=== PATIENT | female | born 1940 | race Caucasian/White ===

== ENCOUNTER 2018-05-25 04:38 | Outpatient (CLI) | payer MEDICARE, OTHER | END 2018-05-25 23:59 | disposition short-term general hospital (02) | LOC: EMS 04:38 | PROVIDERS: ATTEND Surgery | DX: R25.2 Cramp and spasm (principal) | CPT/HCPCS: A0425; A0429 ==

== ENCOUNTER 2021-11-06 14:09 | Outpatient (CLI) | payer MEDICARE, OTHER ==
[2021-11-06 14:28] LABS: GLUCOSE, URINE (UA) NEGATIVE (NEGATIVE); KETONES,URINE (UA) NEGATIVE (NEGATIVE); LEUKOCYTE ESTERASE, URINE SMALL (NEGATIVE); NITRITE,URINE NEGATIVE (NEGATIVE); OCCULT BLOOD,URINE NEGATIVE (NEGATIVE); PROTEIN,URINE NEGATIVE (NEGATIVE); UROBILINOGEN,URINE 0.2 (NORMAL) E.U./dL (NORMAL)
[2021-11-06 14:51] LABS: BILIRUBIN,URINE MODERATE (NEGATIVE); CLARITY,URINE CLEAR (CLEAR); ICTOTEST,URINE POSITIVE
[2021-11-06 14:52] LABS: BACTERIA,URINE Few /HPF (None Seen); RBC,URINE 0-5 /HPF (0-5); SQUAMOUS EPITHELIAL CELL,UR MOD Squamous (<= Few); WBC,URINE 0-3 /HPF (0-5)
== END 2021-11-06 14:10 | disposition home or self-care (01) ==
LOC: LAB 14:09
PROVIDERS: ATTEND Surgery
DX: R30.0 Dysuria (principal)
CPT/HCPCS: 81001; 87086

== ENCOUNTER 2021-11-20 08:19 | Day surgery (SDC) | payer MEDICARE, OTHER ==
[~2021-11-20 08:19] MED LIST: BUPIVACAINE 0.5% PF 30 ML VIAL ONE; CEFAZOLIN SODIUM IN 0.9 % NACL 2 GM/50 ML BAG IV ONE; LIDOCAINE 2%-EPI 1:100000 20 ML MDV ONE; ceFAZolin 1 GM VIAL ONE
[2021-11-20] MEDS ORDERED: LACTATED RINGERS 1,000 ML IV ONE ×2 (08:41→11:38)
--- NOTE | 2021-11-20 08:47 | ANESTHESIA ---
Pre-Anesthesia VS, & Labs - Diagnosis incarcerated umbilical hernia - Procedure umbilical hernia repair Vital Signs: Temp Pulse Resp BP Pulse Ox 36.9 C 88 16 169/90 H 100 11/20/21 08:20 11/20/21 08:20 11/20/21 08:20 11/20/21 08:20 11/20/21 08:20 Height: 5 ft 4 in Weight (kg): 74 kg Body Mass Index: 28.0 BMI Classification: Overweight - NPO >8 hours - Is Patient ?: No - Lab Results Lab results reviewed: Yes Home Medications and Allergies Home Medications: Ambulatory Orders Acetaminophen [Pain Relief Extra Strength] 500 mg PO PRN PRN 11/10/21 Albuterol Sulfate [Proair Hfa Inhaler] 1 - 2 puffs INH Q4H PRN 11/10/21 Aspirin [Aspirin EC] 81 mg PO QPM 11/10/21 Brimonidine/Dorzolamide/Pf [Brimonidine 0.15%-Dorzolam 2%] 1 drops EACHEYE BID 11/10/21 Calcium Carbonate [Calcium] 600 mg PO BID 11/10/21 Calcium Carbonate [Tums (Calcium Carbonate 500mg)] 500 mg PO Q4-6H PRN 11/10/21 Cholecalciferol (Vitamin D3) [Vitamin D3] 50 mcg PO DAILY 11/10/21 Docusate Sodium [Dulcolax Stool Softener] 300 mg PO QPM 11/10/21 Escitalopram [Lexapro] 10 mg PO DAILY 11/10/21 Etodolac 400 mg PO QPM 11/10/21 Gabapentin [Neurontin] 300 mg PO BID 11/10/21 Lactobacillus Combination No.4 [Probiotic] 1 each PO BID 11/10/21 Latanoprost/Pf [Latanoprost 0.005% Eye Drop] 1 drops EACHEYE QPM 11/10/21 Loratadine/Pseudoephedrine [Allerclear D-24Hr ER Tablet] 1 each PO DAILY 11/10/21 Melatonin 3 mg PO QPM 11/10/21 Omeprazole 20 mg PO PRN PRN 11/10/21 Timolol/Brimonidin/Dorzolam/Pf [Timol 0.5%-Brim 0.15%-Dorzo 2%] 1 drops EACHEYE DAILY 11/10/21 methocarbamoL [Methocarbamol] 500 mg PO QPM 11/10/21 Acetaminophen [Pain Relief Extra Strength] 500 mg PO PRN PRN 11/10/21 Albuterol Sulfate [Proair Hfa Inhaler] 1 - 2 puffs INH Q4H PRN 11/10/21 Aspirin [Aspirin EC] 81 mg PO QPM 11/10/21 Brimonidine/Dorzolamide/Pf [Brimonidine 0.15%-Dorzolam 2%] 1 drops EACHEYE BID 11/10/21 Calcium Carbonate [Calcium] 600 mg PO BID 11/10/21 Calcium Carbonate [Tums (Calcium Carbonate 500mg)] 500 mg PO Q4-6H PRN 11/10/21 Cholecalciferol (Vitamin D3) [Vitamin D3] 50 mcg PO DAILY 11/10/21 Docusate Sodium [Dulcolax Stool Softener] 300 mg PO QPM 11/10/21 Escitalopram [Lexapro] 10 mg PO DAILY 11/10/21 Etodolac 400 mg PO QPM 11/10/21 Gabapentin [Neurontin] 300 mg PO BID 11/10/21 Lactobacillus Combination No.4 [Probiotic] 1 each PO BID 11/10/21 Latanoprost/Pf [Latanoprost 0.005% Eye Drop] 1 drops EACHEYE QPM 11/10/21 Loratadine/Pseudoephedrine [Allerclear D-24Hr ER Tablet] 1 each PO DAILY 11/10/21 Melatonin 3 mg PO QPM 11/10/21 Omeprazole 20 mg PO PRN PRN 11/10/21 Timolol/Brimonidin/Dorzolam/Pf [Timol 0.5%-Brim 0.15%-Dorzo 2%] 1 drops EACHEYE DAILY 11/10/21 methocarbamoL [Methocarbamol] 500 mg PO QPM 11/10/21 Allergies/Adverse Reactions: Allergies Allergy/AdvReac Type Severity Reaction Status Date / Time Penicillins Allergy Hives Verified 11/10/21 12:01 Sulfa (Sulfonamide Allergy Unknown Verified 11/10/21 12:01 Antibiotics) adhesive tape AdvReac skin Verified 11/10/21 12:01 redness/ irritation Anes History & Medical History - Anesthetic History Anesthesia Complications: reports: No previous complications Family history of Anesthesia Complications: Denies Family history of Malignant Hyperthermia: Denies - Medical History Cardiovascular: reports: None Pulmonary: reports: Asthma Gastrointestinal: reports: None Urinary: reports: Other Musculoskeletal: reports: Osteoarthritis Endocrine/Autoimmune: reports: None Skin: reports: None - Surgical History General: reports: Colonoscopy, Other Eyes Ears Nose Throat (EENT): reports: Cataracts, Tonsil/Adenoidectomy, Other Gynecologic: reports: Hysterectomy Orthopedic: reports: Spine surgery Exam General: Alert, Oriented x3, Cooperative Plan Anesthesia Type: General Consent for Procedure(s) Verified and Reviewed: Yes Code Status: Attempt Resuscitation
[2021-11-20] MEDS ORDERED: fentaNYL 100 MCG/2 ML VIAL ONE (10:03)
[2021-11-20] MEDS ORDERED: ATROPINE ABBOJECT 1 MG/10 ML SYRINGE IVP PRN (10:18)
[2021-11-20] MEDS ORDERED: NALOXONE 0.4 MG/ML VIAL IVP PRN (10:18)
[2021-11-20] MEDS ORDERED: ePHEDrine 50 MG/ML VIAL IVP PRN (10:18)
[2021-11-20] MEDS ORDERED: fentaNYL 100 MCG/2 ML VIAL IVP PRN (10:18)
[2021-11-20] MEDS ORDERED: MORPHINE 2 MG/ML CARPUJECT IVP PRN (10:18)
[2021-11-20] MEDS ORDERED: HYDROmorphone 0.5 MG/0.5 ML SYRINGE IVP PRN (10:18)
--- NOTE | 2021-11-20 10:18 | ANESTHESIA ---
Pre-Anesthesia VS, & Labs - Diagnosis umbilical hernia - Procedure umbilical hernia repair Vital Signs: Temp Pulse Resp BP Pulse Ox 36.9 C 88 16 169/90 H 100 11/20/21 08:20 11/20/21 08:20 11/20/21 08:20 11/20/21 08:20 11/20/21 08:20 Height: 5 ft 4 in Weight (kg): 74 kg Body Mass Index: 28.0 BMI Classification: Overweight - NPO >8 hours - Is Patient ?: No Home Medications and Allergies Home Medications: Ambulatory Orders Acetaminophen [Pain Relief Extra Strength] 500 mg PO PRN PRN 11/10/21 Albuterol Sulfate [Proair Hfa Inhaler] 1 - 2 puffs INH Q4H PRN 11/10/21 Aspirin [Aspirin EC] 81 mg PO QPM 11/10/21 Brimonidine/Dorzolamide/Pf [Brimonidine 0.15%-Dorzolam 2%] 1 drops EACHEYE BID 11/10/21 Calcium Carbonate [Calcium] 600 mg PO BID 11/10/21 Calcium Carbonate [Tums (Calcium Carbonate 500mg)] 500 mg PO Q4-6H PRN 11/10/21 Cholecalciferol (Vitamin D3) [Vitamin D3] 50 mcg PO DAILY 11/10/21 Docusate Sodium [Dulcolax Stool Softener] 300 mg PO QPM 11/10/21 Escitalopram [Lexapro] 10 mg PO DAILY 11/10/21 Etodolac 400 mg PO QPM 11/10/21 Gabapentin [Neurontin] 300 mg PO BID 11/10/21 Lactobacillus Combination No.4 [Probiotic] 1 each PO BID 11/10/21 Latanoprost/Pf [Latanoprost 0.005% Eye Drop] 1 drops EACHEYE QPM 11/10/21 Loratadine/Pseudoephedrine [Allerclear D-24Hr ER Tablet] 1 each PO DAILY 11/10/21 Melatonin 3 mg PO QPM 11/10/21 Omeprazole 20 mg PO PRN PRN 11/10/21 Timolol/Brimonidin/Dorzolam/Pf [Timol 0.5%-Brim 0.15%-Dorzo 2%] 1 drops EACHEYE DAILY 11/10/21 methocarbamoL [Methocarbamol] 500 mg PO QPM 11/10/21 Acetaminophen [Pain Relief Extra Strength] 500 mg PO PRN PRN 11/10/21 Albuterol Sulfate [Proair Hfa Inhaler] 1 - 2 puffs INH Q4H PRN 11/10/21 Aspirin [Aspirin EC] 81 mg PO QPM 11/10/21 Brimonidine/Dorzolamide/Pf [Brimonidine 0.15%-Dorzolam 2%] 1 drops EACHEYE BID 11/10/21 Calcium Carbonate [Calcium] 600 mg PO BID 11/10/21 Calcium Carbonate [Tums (Calcium Carbonate 500mg)] 500 mg PO Q4-6H PRN 11/10/21 Cholecalciferol (Vitamin D3) [Vitamin D3] 50 mcg PO DAILY 11/10/21 Docusate Sodium [Dulcolax Stool Softener] 300 mg PO QPM 11/10/21 Escitalopram [Lexapro] 10 mg PO DAILY 11/10/21 Etodolac 400 mg PO QPM 11/10/21 Gabapentin [Neurontin] 300 mg PO BID 11/10/21 Lactobacillus Combination No.4 [Probiotic] 1 each PO BID 11/10/21 Latanoprost/Pf [Latanoprost 0.005% Eye Drop] 1 drops EACHEYE QPM 11/10/21 Loratadine/Pseudoephedrine [Allerclear D-24Hr ER Tablet] 1 each PO DAILY 11/10/21 Melatonin 3 mg PO QPM 11/10/21 Omeprazole 20 mg PO PRN PRN 11/10/21 Timolol/Brimonidin/Dorzolam/Pf [Timol 0.5%-Brim 0.15%-Dorzo 2%] 1 drops EACHEYE DAILY 11/10/21 methocarbamoL [Methocarbamol] 500 mg PO QPM 11/10/21 Allergies/Adverse Reactions: Allergies Allergy/AdvReac Type Severity Reaction Status Date / Time Penicillins Allergy Hives Verified 11/10/21 12:01 Sulfa (Sulfonamide Allergy Unknown Verified 11/10/21 12:01 Antibiotics) adhesive tape AdvReac skin Verified 11/10/21 12:01 redness/ irritation Anes History & Medical History - Anesthetic History Family history of Anesthesia Complications: Denies Family history of Malignant Hyperthermia: Denies - Medical History Cardiovascular: reports: None Pulmonary: reports: Asthma Gastrointestinal: reports: None Urinary: reports: Other Musculoskeletal: reports: Osteoarthritis Endocrine/Autoimmune: reports: None Skin: reports: None - Surgical History General: reports: Colonoscopy, Other Eyes Ears Nose Throat (EENT): reports: Cataracts, Tonsil/Adenoidectomy, Other Gynecologic: reports: Hysterectomy Orthopedic: reports: Spine surgery Exam General: Alert, Oriented x3, Cooperative Dental: WNL Mouth Openin Fingerbreadth Neck Mobility: Normal Mallampati classification: II Thyromental Distance: 4-6 cm Respiratory: Lungs clear Cardiovascular: Regular rate Plan Anesthesia Type: General Consent for Procedure(s) Verified and Reviewed: Yes Code Status: Attempt Resuscitation ASA classification: 2-Mild systemic disease Is this case an emergency?: No
[2021-11-20] MEDS ORDERED: KETOROLAC 30 MG/ML VIAL ONE (10:41)
[2021-11-20] MEDS ORDERED: diphenhydrAMINE INJ 50 MG/ML VIAL ONE (10:43)
[2021-11-20] MEDS ORDERED: BUPIVACAINE 0.5% PF 30 ML VIAL INFIL ONE ×2 (10:58)
[2021-11-20] MEDS ORDERED: LIDOCAINE 2%-EPI 1:100000 20 ML MDV SUBQ ONE ×2 (10:58)
[2021-11-20] MEDS ORDERED: ceFAZolin 1 GM VIAL IR ONE (10:59)
[2021-11-20] MEDS ORDERED: LACTATED RINGERS 1,000 ML IV SCH (11:00)
[2021-11-20] MEDS ORDERED: ePHEDrine 50 MG/ML VIAL IVP ONE (11:03)
[2021-11-20] MEDS ORDERED: ACETAMINOPHEN 325 MG TABLET PO PRN (11:24)
[2021-11-20] MEDS ORDERED: ONDANSETRON 4 MG/2 ML VIAL IVP PRN (11:24)
[2021-11-20] MEDS ORDERED: IBUPROFEN 600 MG TABLET PO PRN (11:24)
[2021-11-20] MEDS ORDERED: oxyCODONE 5 MG TABLET PO PRN (11:24)
--- NOTE | 2021-11-20 11:24 | OPERATIVE REPORT ---
Operative Report - General Procedure Date: 11/20/21 Planned Procedure: Umbilical hernia repair Pre-Op Diagnosis: Symptomatic umbilical hernia Procedure Performed: Umbilical hernia repair Post Op Diagnosis: Same - Procedure Note Primary Surgeon: Dionicio Anesthesia Provider: Joanie Pathology: None Estimated Blood Loss (mL): 5 Findings: 2 cm umbilical defect Complications: None apparent - Other Other Information/Narrative: After obtaining informed consent, the patient is brought to the operating room and placed in the supine position on the operating table. Following successful induction of general endotracheal anesthesia, appropriate padding of all bony prominences, and placement of appropriate monitors, the abdomen was prepped and draped in the standard surgical fashion. A timeout was held per scope protocol. All elements of the surgical safety checklist were followed before, during, and after the procedure. Following infiltration with local anesthetic to create a field block, an incision was created directly through the umbilicus and over the palpable and visible defect. This was carried through the skin and subcutaneous tissue. The umbilical tissue was then freed from the umbilical remnant for complete exposure to the hernia sack. The defect was noted to be approximately 2.0 cm in greatest dimension. The hernia sac itself was approximately 8 cm. The hernia sac was carefully dissected free from the overlying skin and underlying fascial tissue as well as the surrounding areolar tissue. The contents of the sac were eased back into the abdominal cavity without opening the peritoneum. The surgically was then inserted into the defect and the anterior abdominal wall palpated internally to be sure there was enough space for mesh placement. We elected to repair the defect with a 6.4 cm a portion of Ventralux ST mesh. The mesh was dipped in Ancef solution and into the defect. It was straightened and flattened in the preperitoneal space. Placement was checked and adjusted. Once we were satisfied it was ideal, the tails were trimmed and sewn to the fascia anteriorly. The wound was checked for hemostasis and irrigated with Ancef containing solution The umbilicus was reconstructed with interrupted Vicryl suture. The incision was closed in layers with Vicryl and Monocryl suture and Dermabond was applied to the skin. All sponge, needle, and instrument counts were correct at the conclusion of the case. The patient was allowed awaken from anesthesia without difficulty and taken to the postanesthesia care unit in good condition.
[2021-11-20] MEDS ORDERED: SUGAMMADEX 200 MG/2 ML VIAL IVP ONE (11:33)
[2021-11-20 13:03] VITALS: BP 166/91
[2021-11-20] MEDS ORDERED: ACETAMINOPHEN 325 MG TABLET PO ONE (13:24)
--- NOTE | 2021-11-20 16:22 | ANESTHESIA POST OP EVALUATION ---
Anesthesia Post Eval - Post Anesthesia Eval Vitals: Last Vital Signs Temp 36.6 C 11/20/21 12:32 Pulse 82 11/20/21 13:02 Resp 16 11/20/21 13:02 BP 166/91 H 11/20/21 13:02 Pulse Ox 95 11/20/21 13:02 CV Function Including HR & BP: Stable Pain Control: Satisfactory Nausea & Vomiting: Negative Mental Status: Baseline Respiratory Status: Airway Patent Hydration Status: Satisfactory Anesthesia Complications: None
== END 2021-11-20 08:20 | disposition home or self-care (01) ==
LOC: SDS 08:19
PROVIDERS: ATTEND Surgery
DX: K42.0 Umbilical hernia with obstruction, without gangrene (principal)
CPT/HCPCS: 49587; A9270; C1781; J0690; J1200; J7120